=== PATIENT | female | born 1970 ===

== ENCOUNTER 2023-03-11 12:00 | Outpatient (CLI) | payer OTHER, SELFPAY ==
--- NOTE | ~2023-03-11 | PE_ITS ---
EXAMINATION: PET skull to mid thigh DATE: 03/11/2023 14:04 INDICATION: Anterior mediastinal mass. TECHNIQUE: Blood glucose level was 94 mg/dL. 10.219 mCi of 18-fluorodeoxyglucose (18-FDG) was adminis tered i.v. Low dose computed tomography (CT) images were acquired from the base of the brain to the p roximal thighs for attenuation correction and anatomic localization. Automated exposure control was e mployed. Dose-length product (DLP) was 653 mGy-cm. Positron emission tomography (PET) images were acq uired in the same distribution. COMPARISON: None FINDINGS: Head/neck: There are no pathologically enlarged lymph nodes. There is increased activity in brown fat in the neck bilaterally. Chest: Calcified right lung nodules and calcified right hilar lymph nodes are consistent with old gra nulomatous disease. No pleural effusion. The heart size is normal. No pericardial effusion. There is increased activity in brown fat in the mediastinum. There is a 2.5 x 1.7 cm mass in the anterior medi astinum measuring soft tissue attenuation without increased activity. Abdomen/pelvis/proximal thighs: The liver, gallbladder, spleen, pancreas, adrenal glands, and kidneys are normal. There are no dilated loops of bowel. There are no pathologically enlarged lymph nodes. T here is no free intraperitoneal fluid. There is no osseous malignancy. IMPRESSION: 1. 2.5 cm mass in the anterior mediastinum without increased activity, most likely a thymoma or thymi c hyperplasia. Reviewed, dictated and finalized at location A. IMPRESSION: 1. 2.5 cm mass in the anterior mediastinum without increased activity, most lik vilma a thymoma or thymic hyperplasia.
[2023-03-11 13:48] LABS: Glucose Point of Care 94 mg/dl (65-105)
== END 2023-03-11 12:01 | disposition home or self-care (01) ==
LOC: ANHIMG 12:01
PROVIDERS: Visit Provider Emergency Medicine
DX: R22.9 Localized swelling, mass and lump, unspecified (principal)
CPT/HCPCS: 78815; A9552